=== PATIENT | male | born 1995 | race Caucasian/White ===

== ENCOUNTER 2017-05-18 16:31 | Emergency (ER) | payer OTHER ==
--- NOTE | 2017-05-18 21:57 | Emergency Department Report ---
Abscess Boil HPI - HPI Chief Complaint: Skin/Abscess/Foreign Body Stated Complaint: ABSCESS AND FACE Time Seen by Provider: 05/18/17 21:12 Duration: >1 Week (2 years recurrent) Location: Other (groin) History: Yes Pain, Yes Purulent Drainage, No Fever, No Numbness, No Foreign Body , No Previous History, No Insect Bite Home Medications: Previous Rx's Medication Instructions Recorded Last Taken Type Fluvoxamine Maleate [Luvox Cr] 150 mg PO QHS #30 cap.er.24h 01/13/14 09/16/14 Rx Ziprasidone HCl [Geodon] 80 mg PO QHS #30 capsule 01/13/14 09/16/14 Rx lamoTRIgine [LaMICtal] 200 mg PO BID #60 tab 01/13/14 09/16/14 Rx Fluticasone Propionate [Flonase] 2 sprays NS QDAY #1 spray 02/03/14 Unknown Rx EPINEPHrine [Epipen 2-Ramesh] 0.3 mg IJ PRN PRN #1 ml 07/26/14 Unknown Rx Acetaminophen [Acetaminophen ER 650 mg PO Q8HR PRN #15 tablet.er 09/11/15 Unknown Rx TAB] Famotidine [Pepcid] 20 mg PO BID #40 tablet 01/27/16 Unknown Rx Loratadine [Claritin] 10 mg PO DAILY #30 tablet 01/27/16 Unknown Rx Prednisone [predniSONE 10 mg 10 mg PO .TAPER #1 tab.ds.pk 01/27/16 Unknown Rx (6-Day Pack, 21 Tabs)] Sulfamethoxazole/Trimethoprim 1 each PO BID #20 tablet 05/18/17 Unknown Rx [Bactrim DS TAB] Allergies/Adverse Reactions: Allergies Allergy/AdvReac Type Severity Reaction Status Date / Time codeine Allergy Unknown Verified 05/18/17 17:31 egg Allergy Unknown Verified 05/18/17 17:31 ibuprofen [From Motrin] Allergy Unknown Verified 05/18/17 17:31 milk Allergy Shortness Verified 05/18/17 17:31 of Breath peanut Allergy Shortness Verified 05/18/17 17:31 of Breath shellfish derived Allergy Swelling Verified 05/18/17 17:31 soy Allergy Swelling Verified 05/18/17 17:31 ED Review of Systems ROS: Stated complaint: ABSCESS AND FACE Other details as noted in HPI ED Past Medical Hx - Past Medical History Hx Psychiatric Treatment: Yes Hx Asthma: Yes Additional medical history: OCD, anxiety, Anger management issues, bipolar depression, recurrent groin abscess - Surgical History Additional Surgical History: Gynecomastia, hernia repair, tonsillectomy - Social History Smoking Status: Never Smoker Substance Use Type: None - Medications Home Medications: Home Medications Medication Instructions Recorded Confirmed Last Taken Type Fluvoxamine Maleate [Luvox Cr] 150 mg PO QHS #30 cap.er.24h 01/13/14 09/16/14 Rx Ziprasidone HCl [Geodon] 80 mg PO QHS #30 capsule 01/13/14 09/16/14 09/16/14 Rx lamoTRIgine [LaMICtal] 200 mg PO BID #60 tab 01/13/14 09/16/14 09/16/14 Rx Fluticasone Propionate [Flonase] 2 sprays NS QDAY #1 spray 02/03/14 09/16/14 Unknown Rx EPINEPHrine [Epipen 2-Ramesh] 0.3 mg IJ PRN PRN #1 ml 07/26/14 09/16/14 Unknown Rx Acetaminophen [Acetaminophen ER 650 mg PO Q8HR PRN #15 tablet.er 09/11/15 Unknown Rx TAB] Famotidine [Pepcid] 20 mg PO BID #40 tablet 01/27/16 Unknown Rx Loratadine [Claritin] 10 mg PO DAILY #30 tablet 01/27/16 Unknown Rx Prednisone [predniSONE 10 mg 10 mg PO .TAPER #1 tab.ds.pk 01/27/16 Unknown Rx (6-Day Pack, 21 Tabs)] Sulfamethoxazole/Trimethoprim 1 each PO BID #20 tablet 05/18/17 Unknown Rx [Bactrim DS TAB] ED Abscess Boil Physical Exam - Exam General: Vital signs noted. No distress. Alert and acting appropriately. Front/Back of Body, Lg (Color): 1 - small abcess less than 1 cm no drainage nonfluctuant Size: 1 cm (less than) Exam: Yes Surrounding Cellulites/Erythema (mild ), No Tenderness, No Fluctuance , No Lymphangitis, No Crepitation, No Heart Murmur, No Normal Neurologic Exam, No Normal Circulation ED Course Vital Signs 05/18/17 17:29 Temperature 98 F Pulse Rate 94 H Respiratory 16 Rate Blood Pressure 143/85 O2 Sat by Pulse 97 Oximetry Critical care attestation.: If time is entered above; I have spent that time in minutes in the direct care of this critically ill patient, excluding procedure time. ED Medical Decision Making - Medical Decision Making pt is a 21 y/o aam with hx of recurrent groin abscesses for past 2 yrs as small , self treated , last pcp tx was amoxicillin 2 months ago, pt advises that I drained it myself but want doctor see it this time , exam: small abscess less than 1 cm scant serous output mild erythema to surround tissue pt denies fever no chills no penile discharge no lymph given recurrence will tx with bactrim ds x 10 day pt will follow up with primary care doctor in 2 days for recheck pt given instructions to return to emergency of symptoms worsen. ED Disposition Clinical Impression: Abscess of groin, right Disposition: - TO HOME OR SELFCARE Is pt being admited?: No Does the pt Need Aspirin: No Condition: Good Instructions: Abscess (ED) Prescriptions: Sulfamethoxazole/Trimethoprim [Bactrim DS TAB] 1 each PO BID #20 tablet Referrals: ERNIE IVAN MD [Primary Care Provider] - 3-5 Days Time of Disposition: 21:58
[2017-05-18 22:39] VITALS: BP 114/77
== END 2017-05-18 22:39 | disposition home or self-care (01) ==
LOC: ED 16:31
DX: L02.214 Cutaneous abscess of groin (principal); J45.909 Unspecified asthma, uncomplicated
CPT/HCPCS: 99282

== ENCOUNTER 2017-10-07 14:21 | Emergency (ER) | payer OTHER ==
[2017-10-07 14:44] VITALS: BP 114/66
[2017-10-07] MEDS ORDERED: ZOFRAN ODT PO ONE (16:07)
--- NOTE | 2017-10-07 16:12 | Emergency Department Report ---
Chief Complaint: Neck Pain/Injury Stated Complaint: ABDOMINAL PAIN - HPI History of Present Illness: 21-year-old male presents from work with a complaint of some neck pain, nausea without vomiting and some dizziness. He denies any headache, vision change, fever, chest pain, shortness of breath. He has a history of OCD and schizophrenia for which he takes medications. PCP is Dr. uGdino but hasn't seen them regarding his symptoms. He did not take anything prior to presentation. - ROS Review of Systems: Patient is positive for neck pain, dizziness and nausea. Patient is negative for headache, vision change, slurred speech, fever, chest pain, shortness of breath - Exam Vital Signs: Vital Signs 10/07/17 14:41 Temperature 98.2 F Pulse Rate 87 Respiratory 18 Rate Blood Pressure 114/66 O2 Sat by Pulse 96 Oximetry Physical Exam: He has some midline and bilateral paraspinal cervical tenderness to palpation but no step-off or deformity. He has some restricted range of motion to rotation. No focal, motor or sensory deficits. He is awake and alert and appropriate. Heart and lungs sounds normal to auscultation. MSE screening note: Focused history and physical exam performed. Due to findings the following was ordered: I have ordered a CBC, BMP and cervical spine x-ray. The patient will get some Zofran ODT. ED Disposition for MSE Condition: Stable
--- NOTE | 2017-10-07 16:47 | XRay Report ---
FINAL REPORT PROCEDURE: XR SPINE CERVICAL 2-3V TECHNIQUE: Cervical spine, four views HISTORY: neck pain COMPARISON: No prior studies are available for comparison. FINDINGS: The vertebral body heights and alignment are maintained. The prevertebral soft tissues are within normal limits in thickness. The odontoid process is intact. Disc spaces are preserved. IMPRESSION: Unremarkable exam
[2017-10-07 17:07] LABS: Basophils # (Auto) 0.1 K/mm3 (0.0-0.1); Basophils % (Auto) 0.5 % (0.0-1.8); Eosinophils # (Auto) 0.1 K/mm3 (0.0-0.4); Eosinophils % (Auto) 0.7 % (0.0-4.3); Hematocrit 40.6 % (35.5-45.6); Hemoglobin 13.5 gm/dl (11.8-15.2); Lymphocytes % (Auto) 10.3 % (13.4-35.0); Mean Corpuscular HGB Conc 33 % (32-34); Mean Corpuscular Hemoglobin 29 pg (28-32); Mean Corpuscular Volume 88 fl (84-94); Monocytes # (Auto) 0.5 K/mm3 (0.0-0.8); Monocytes % (Auto) 5.1 % (0.0-7.3); Platelet Count 249 K/mm3 (140-440); Red Blood Count 4.61 M/mm3 (3.65-5.03); Red Cell Distribution Width 14.6 % (13.2-15.2)
[2017-10-07 17:11] LABS: BUN/Creatinine Ratio 13; Blood Urea Nitrogen 13 mg/dL (9-20); Calcium 9.3 mg/dL (8.4-10.2); Hemolysis Index 10
--- NOTE | 2017-10-07 17:36 | Emergency Department Report ---
ED Neck Pain HPI Chief Complaint: Neck Pain/Injury Stated Complaint: ABDOMINAL PAIN Time Seen by Provider: 10/07/17 16:23 Symptoms: Yes Pain with Movement, No Radiation to Left Upper Ext, No Radiation to Right Upper Ext, No Numbness, No Weakness, No Previous History Other History: 21-year-old male past medical history schizophrenia, multiple medical allergies presents with complaint of 3 days of left-sided posterior neck discomfort. States it feels tight sensation. Denies any direct trauma denies any fevers chills nausea vomiting. Patient is awake alert and oriented 3 not in acute distress. States he may have been slightly nauseous earlier today. Denies any abdominal pain chest pain palpitations dysuria or increased urinary frequency. Denies any paresthesias to upper or lower extremities. he iss visibly ranging his neck during examination without difficulty. Patient denies alcohol or drug use. ED Review of Systems ROS: Stated complaint: ABDOMINAL PAIN Other details as noted in HPI Constitutional: denies: chills, fever Eyes: denies: eye pain, eye discharge, vision change ENT: denies: ear pain, throat pain Respiratory: denies: cough, shortness of breath, wheezing Cardiovascular: denies: chest pain, palpitations Endocrine: no symptoms reported Gastrointestinal: denies: abdominal pain, nausea, diarrhea Genitourinary: denies: urgency, dysuria Musculoskeletal: as per HPI (intermittent left-sided neck stiffness for 3 days) . denies: back pain, joint swelling, arthralgia Skin: denies: rash, lesions Neurological: denies: headache, weakness, paresthesias Psychiatric: denies: anxiety, depression Hematological/Lymphatic: denies: easy bleeding, easy bruising ED Past Medical Hx - Past Medical History Hx Psychiatric Treatment: Yes Hx Asthma: Yes Additional medical history: OCD, anxiety, Anger management issues, bipolar depression, recurrent groin abscess - Surgical History Additional Surgical History: Gynecomastia, hernia repair, tonsillectomy - Social History Smoking Status: Never Smoker Substance Use Type: None - Medications Home Medications: Home Medications Medication Instructions Recorded Confirmed Last Taken Type Fluvoxamine Maleate [Luvox Cr] 150 mg PO QHS #30 cap.er.24h 01/13/14 09/16/14 Rx Ziprasidone HCl [Geodon] 80 mg PO QHS #30 capsule 01/13/14 09/16/14 09/16/14 Rx lamoTRIgine [LaMICtal] 200 mg PO BID #60 tab 01/13/14 09/16/14 09/16/14 Rx Fluticasone Propionate [Flonase] 2 sprays NS QDAY #1 spray 02/03/14 09/16/14 Unknown Rx EPINEPHrine [Epipen 2-Ramesh] 0.3 mg IJ PRN PRN #1 ml 07/26/14 09/16/14 Unknown Rx Acetaminophen [Acetaminophen ER 650 mg PO Q8HR PRN #15 tablet.er 09/11/15 Unknown Rx TAB] Famotidine [Pepcid] 20 mg PO BID #40 tablet 01/27/16 Unknown Rx Loratadine [Claritin] 10 mg PO DAILY #30 tablet 01/27/16 Unknown Rx Prednisone [predniSONE 10 mg 10 mg PO .TAPER #1 tab.ds.pk 01/27/16 Unknown Rx (6-Day Pack, 21 Tabs)] Sulfamethoxazole/Trimethoprim 1 each PO BID #20 tablet 05/18/17 Unknown Rx [Bactrim DS TAB] Acetaminophen [Acetaminophen TAB] 500 mg PO Q6HR PRN #20 tablet 10/07/17 Unknown Rx Ondansetron [Zofran Odt] 4 mg PO Q8H PRN #10 tab.rapdis 10/07/17 Unknown Rx Neck Pain Exam - Exam General: Vital signs noted. No distress. Alert and acting appropriately. HEENT: No Facial Pain, No Scalp Tenderness, No Contusion, No Abrasion, No Laceration Neck Pain: Yes Left Paraspinal Tenderness (some discomfort overlying the left trapezius region on deep palpation), No Midline Tenderness (there is no cervical spine midline tenderness), No Right Paraspinal Tenderness, No Right Trapezius Tenderness, No Left Trapezius Tenderness, No Pain with Rotation Right , No Pain with Rotation Left, No Pain with Extension, No Pain with Flexion, No pain with R Lateral Flexion, No Pain with L Lateral Flexion Chest: Yes Clear Lung Sounds, No Pain with Respirations Heart: Yes Regular, No Murmur Back: No Thoracic Tenderness, No Lumbar Tenderness Neuro: No Numbness, No Weakness (strength 5 out of 5 bilateral upper extremities ), No Normal Reflexes (DTRs intact tricep bilaterally), No Radicular Deficits ED Course Vital Signs 10/07/17 14:41 Temperature 98.2 F Pulse Rate 87 Respiratory 18 Rate Blood Pressure 114/66 O2 Sat by Pulse 96 Oximetry ED Medical Decision Making - Lab Data Result diagrams: 10/07/17 16:40 10/07/17 16:40 - Medical Decision Making A/P: Musculoskeletal neck pain 1-Tylenol when necessary 2-follow-up with primary care doctor. Patient states he has an appointment tomorrow to follow up with his primary care doctor 3-Cranial nerves 2, 3, 4, 5, 6, 7, 8,10, 11, 12 intact on clinical exam, patient is fully lucid awake alert and oriented 3 conversant. Denies any upper or lower extremity paresthesias and has 5/5 strength in bilateral upper and lower extremities on clinical exam. Patient given precautions, instructed to return to the ED for any fevers chills and inability to flex or extend his neck on his own confusion, lethargy, chest pain, shortness of breath, abdominal pain, inability to tolerate by mouth, paresthesias, inability to ambulate. father at bedside for this discussion. Patient agreed to follow his instructions and patient's father stated he would also look after him 5- pt independently ambulatory without assistance upon discharge Critical care attestation.: If time is entered above; I have spent that time in minutes in the direct care of this critically ill patient, excluding procedure time. ED Disposition Clinical Impression: Neck pain Disposition: DC-01 TO HOME OR SELFCARE Is pt being admited?: No Does the pt Need Aspirin: No Condition: Stable Instructions: Musculoskeletal Pain (ED) Prescriptions: Acetaminophen [Acetaminophen TAB] 500 mg PO Q6HR PRN #20 tablet PRN Reason: Pain Ondansetron [Zofran Odt] 4 mg PO Q8H PRN #10 tab.rapdis PRN Reason: Nausea Referrals: [facility] [Outside] - 3-5 Days Forms: Accompanied Note, Work/School Release Form(ED) Time of Disposition: 17:35
== END 2017-10-07 17:44 | disposition home or self-care (01) ==
LOC: ED 14:21
DX: M54.2 Cervicalgia (principal); J45.909 Unspecified asthma, uncomplicated; F31.9 Bipolar disorder, unspecified; F41.9 Anxiety disorder, unspecified; Z91.013 Allergy to seafood; Z91.012 Allergy to eggs; Z91.011 Allergy to milk products; Z88.5 Allergy status to narcotic agent
CPT/HCPCS: 36415; 72040; 80048; 85025; 99284; Q0162